=== PATIENT | female | born 1985 | race Caucasian/White ===

== ENCOUNTER 2021-01-29 15:27 | Emergency (ER) | payer SELFPAY ==
[2021-01-29 15:41] VITALS: BP 142/93; PULSE 76; RESP 18; TEMP 37; O2SAT 100
--- NOTE | 2021-01-29 16:20 | ED.GENADULT ---
HPI - General Adult General Chief complaint: Skin/Abscess/Foreign Body Stated complaint: Tick Bite Time Seen by Provider: 01/29/21 16:20 Source: patient and RN notes reviewed Mode of arrival: ambulatory Limitations: no limitations History of Present Illness HPI narrative: 35-year-old female presents with complaints of red, raised, and itching due to tic bites for the past 4 days. Michelle reports being outside in tall grass and finding tics over the next 2-3 days, removed without difficulty. Michelle reports removing tics from LT shoulder, and back of RT knee (redness and swelling). Denies new detergent, personal hygiene products or laundry detergents. No new foods or medications. No burning, bleeding, or drainage. Denies headaches, weakness, fatigue, myalgia, facial swelling, or tongue swelling. Denies dyspnea. Remains active. The patient reports they have not been diagnosed with COVID-19. The patient reports they are not waiting for the results of a COVID-19 lab test. The patient reports they do not have fever or chills. The patient reports they do not have a new or worsening cough. Denies chest pain. The patient reports they do not have any rhinorrhea, congestion, sore throat, nausea, vomiting, abdominal pain, and diarrhea. Tolerating po intake well. Denies recent traveling. Denies concerns for COVID-19 or exposures. At this time, patient is not suspected of having COVID-19. Some parts of this dictation were generated by voice recognition software and may contain typographical and/or grammatical inaccuracies. Related Data Allergies Allergy/AdvReac Type Severity Reaction Status Date / Time Penicillins Allergy Unknown Verified 01/29/21 15:50 Sulfa (Sulfonamide Allergy Unknown Verified 01/29/21 15:50 Antibiotics) Review of Systems Review of Systems: Narrative: CONSTITUTIONAL: Denies fever, chills, sweats. EYES: Denies visual changes, redness, discharge. ENT: Denies rhinorrhea, congestion, sore throat, otalgia. CARDIOVASCULAR: Denies chest pain, palpitations, edema. RESPIRATORY: Denies dyspnea, wheezing, cough. GASTROINTESTINAL: Denies abdominal pain, nausea, vomiting, or diarrhea. SKIN: Denies rash or itching. Complains of red, raised, and itching tic bites to LT shoulder and back of RT knee (redness and swelling). MUSCULOSKELETAL: Denies acute back pain, joint pain, or myalgia. NEUROLOGIC: Denies numbness or focal weakness. PSYCHIATRIC: Denies anxiety or depression. All other systems reviewed & are unremarkable except as noted in HPI and below. FOR[facility]LY [facility] Past Medical History Medical History (Updated 02/07/21 @ 11:47 by JAIDA Moreira) Hypertension Surgical History Surgical History (Updated 02/07/21 @ 11:47 by JAIDA Moreira) History of tonsillectomy Family History Family History (Updated 02/07/21 @ 11:48 by JAIDA Moreira) Father Hypertension Diabetes mellitus Mother Alive and well Social History Social History (Updated 02/07/21 @ 11:50 by JAIDA Moreira) Smoking status: Never smoker Tobacco type: cigarettes Second hand tobacco smoke exposure: No Alcohol intake: current Substance use: never Substance use type: does not use Living arrangements: with family Occupation/Education: occupation Gender identity (if verbalized by the patient): Female Sexual Orientation (if Verbalized by the Patient): Straight or Heterosexual Comments At time of signature, agree with nurse past medical, surgical, social, and family history. There is no relevant family history pertinent to the presenting complaint. Exam Narrative: Exam Narrative: GENERAL: This is a well-nourished, well-developed patient, in no apparent distress. Talks in full sentences and ambulates with steady gait without dyspnea. HEAD: normocephalic, atraumatic. EYES: PERRL. Sclera clear/white. Vision is grossly intact. CARDIOVASCULAR: Regular rate and rhythm without murmurs, gallops,
== END 2021-01-29 16:51 | disposition home or self-care (01) ==
PROVIDERS: Emergency Provider Nurse Practitioner Family
DX: S80.861A Insect bite (nonvenomous), right lower leg, initial encounter (principal); W57.XXXA Bitten or stung by nonvenomous insect and other nonvenomous arthropods, initial encounter
CPT/HCPCS: 99213; G0463

== ENCOUNTER 2022-09-04 09:48 | Inpatient (IN) | payer OTHER, SELFPAY ==
--- NOTE | 2022-08-29 16:20 | PC.NURSE ---
Verified with OR schedule and patient --C/S on 09/04/22 at 1200 Patient instructed nothing to eat or drink after midnight on the night before surgery, needs to be in OB 2 hours before surgery and she needs have pre-op labs drawn the day before surgery-Patient verbalized her understanding
[2022-09-04] VITALS (81 sets, daily range): BP systolic 118–159; BP diastolic 64–141; PULSE 61–94; RESP 14–20; TEMP 36.2–36.7; O2SAT 78–100; BMI 38.0
[2022-09-04 10:38] LABS: Basophils Percent Auto 0.2 % (0.2-1.2); Eosinophils Percent Auto 0.4 % (0-4.4); Hemoglobin 11.5 g/dL (12.0-15.0); Immature Granulocyte Absolute 0.04 K/mm3 (0.00-0.031); Immature Granulocyte Percent A 0.5 % (0-0.5); Lymphocytes Absolute Auto 1.41 K/mm3 (0.9-3.2); Lymphocytes Percent Auto 17.2 % (18.3-44.2); Mean Corpuscular HGB Conc 32.9 g/dl (32-36); Mean Corpuscular Hemoglobin 28.9 pg (26-34); Mean Corpuscular Volume 87.9 fl (80-100); Mean Platelet Volume 10.9 fl (7.4-10.4); Monocytes Absolute Auto 0.7 K/mm3 (0.1-0.6); Monocytes Percent Auto 8.2 % (2.6-8.5); Neutrophils Percent Auto 73.5 % (45.5-73.1); Platelet Count Result 297 k/mm3 (150-375); Red Blood Count 3.98 M/mm3 (4.2-5.4); Red Cell Distribution Width 16.4 % (11.5-14.5); White Blood Count 8.2 K/mm3 (4.5-10.0)
--- NOTE | 2022-09-04 10:50 | LDADM ---
This patient, Michelle Cordova, was admitted to Labor/Delivery/Recovery 119 on 09/04/22 at 09:48 for scheduled section. Plans for surgery/ and pain management were discussed with patient. Patient/family oriented to hospital policies and general routines including ID bracelet, bed and alarms, visiting hours, pain management, procedures, bathroom and other care routines, personal items, smoking policy, room service/diet and guest tray routines, security routines, and visiting hours. Patient/Family are encouraged to report perceived risks to care and to ask questions if they do not understand what they are told or what they should do.
[2022-09-04] MEDS: LACTATED RINGERS 1,000 ML 125 ML IV CONT ×2 (10:51→11:53)
--- NOTE | 2022-09-04 11:40 | WPDANESEPPF ---
Anes - Initial Pre Proc Eval Procedure: Operation Date: 09/04/22 12:00 Proposed Procedures p Primary Section - Alyson Palomo MD Date/Time: 09/04/22 11:40 Surgeon: Alyson Palomo MD Pre Op Diagnosis: C/S Patient Data Age: 37 Gender: F Height: 1.73 m Weight: 113.5 kg Last Vital Signs Temp 36.7 C 09/04/22 11:15 Pulse 88 09/04/22 11:16 Resp 20 09/04/22 11:15 BP 128/90 09/04/22 11:16 Pulse Ox 100 09/04/22 11:15 O2 Del Method Room Air 09/04/22 10:50 Allergies Allergy/AdvReac Type Severity Reaction Status Date / Time Penicillins Allergy Unknown Verified 08/31/22 13:13 Sulfa (Sulfonamide Allergy Unknown Verified 08/31/22 13:13 Antibiotics) Home Medications Medication Instructions Recorded Confirmed Type PNV 153-FA 400 mcg-om3 35 mg-dha 1 tablet PO DAILY 08/27/22 09/04/22 History 25 mg-epa 5 mg-fish oil chew tablet ( Gummies) lansoprazole 15 mg capsule,delayed 15 mg PO BID 08/27/22 09/04/22 History release Laboratory Tests 09/04/22 09/04/22 09/04/22 10:31 10:31 10:31 WBC 8.2 K/mm3 K/mm3 (4.5-10.0) RBC 3.98 M/mm3 L M/mm3 (4.2-5.4) Hgb 11.5 g/dL L g/dL (12.0-15.0) Hct 35.0 % L % (37.0-47.0) MCV 87.9 fl fl (80-100) MCH 28.9 pg pg (26-34) MCHC 32.9 g/dl g/dl (32-36) RDW 16.4 % H % (11.5-14.5) Plt Count 297 k/mm3 k/mm3 (150-375) MPV 10.9 fl H fl (7.4-10.4) Immature Gran % (Auto) 0.5 % % (0-0.5) Neut % (Auto) 73.5 % H % (45.5-73.1) Lymph % (Auto) 17.2 % L % (18.3-44.2) [place] % (Auto) 8.2 % % (2.6-8.5) Eos % (Auto) 0.4 % % (0-4.4) Baso % (Auto) 0.2 % % (0.2-1.2) Lymph # (Auto) 1.41 K/mm3 K/mm3 (0.9-3.2) [place] # (Auto) 0.7 K/mm3 H K/mm3 (0.1-0.6) Eos # (Auto) 0.0 K/mm3 K/mm3 (0-0.3) Baso # (Auto) 0.0 K/mm3 K/mm3 (0.0-0.1) Abs Immat Gran (auto) 0.04 K/mm3 H K/mm3 (0.00-0.031) Absolute Neuts (auto) 6.0 K/mm3 K/mm3 (1.3-6.7) Absolute Nucleated RBC 0.0 K/mm3 K/mm3 (0.0-0.012) Nucleated RBC % 0.0 % % (0.0-0.2) RPR Pending Blood Type A Positive Antibody Screen Pending Patient hx anesthesia problems: none Family hx anesthesia problems: none Results Review: All pre-operative results and documents have been reviewed as part of the pre-operative evaluation. [facility] Past Medical History Medical History Hypertension Surgical History Surgical History History of tonsillectomy Family History Family History Father Diabetes mellitus Hypertension Restrictive airway disease Mother Alive and well Hypothyroid Grandparent Diabetes mellitus Hypertension Grandparent Colon cancer Grandparent Afib Hypertension Grandparent Prostate carcinoma Social History Social History Smoking status: Never smoker Tobacco type: cigarettes Second hand tobacco smoke exposure: No Alcohol intake: current Substance use: never Substance use type: does not use Lack of Transportation: No Lack of Food: Never True Current Housing: I Have Housing Concerned About Future Housing: No Difficulty Paying Gas/Electric Bills: No Difficulty Paying for Meds: No Currently Unemployed: No Education: Trade/Vocational Certificate Difficulty w/ Childcare or Family Care: No Gender identity (if verbalized by the patient): Female Sexual Orientation (if Verbalized by the Patient): Straight or Heterosexual Spiritual care concerns: No Anes - Eval Final PreProcedure Day of Procedure 09/04/22 11:4
[2022-09-04] MEDS: ceFAZolin 2 GM/D5W 50 ML 2 GM/50 ML BAG IVPB (12:03)
--- NOTE | 2022-09-04 12:03 | PM.IMHP ---
H&P: HPI History of Present Illness Date/Time: 09/04/22 12:03 Chief Complaint: CS Narrative: Michelle is a 37yo G1 at 38.0 for primary CS for CHTN and macrosomia, >99% at 36w. also complicated by AMA, anxiety and depression without meds, and leiomyoma. Review of Systems Review of Systems: All systems reviewed & are unremarkable except as noted in HPI and below PMFSH Past Medical History Medical History Hypertension Surgical History Surgical History History of tonsillectomy Family History Family History Father Diabetes mellitus Hypertension Restrictive airway disease Mother Alive and well Hypothyroid Grandparent Diabetes mellitus Hypertension Grandparent Colon cancer Grandparent Afib Hypertension Grandparent Prostate carcinoma Social History Social History Smoking status: Never smoker Tobacco type: cigarettes Second hand tobacco smoke exposure: No Alcohol intake: current Substance use: never Substance use type: does not use Lack of Transportation: No Lack of Food: Never True Current Housing: I Have Housing Concerned About Future Housing: No Difficulty Paying Gas/Electric Bills: No Difficulty Paying for Meds: No Currently Unemployed: No Education: Trade/Vocational Certificate Difficulty w/ Childcare or Family Care: No Gender identity (if verbalized by the patient): Female Sexual Orientation (if Verbalized by the Patient): Straight or Heterosexual Spiritual care concerns: No Meds Home Medications and Allergies Home Medications Medication Instructions Recorded Confirmed Type PNV 153-FA 400 mcg-om3 35 mg-dha 1 tablet PO DAILY 08/27/22 09/04/22 History 25 mg-epa 5 mg-fish oil chew tablet ( Gummies) lansoprazole 15 mg capsule,delayed 15 mg PO BID 08/27/22 09/04/22 History release Allergies Allergy/AdvReac Type Severity Reaction Status Date / Time Penicillins Allergy Unknown Verified 08/31/22 13:13 Sulfa (Sulfonamide Allergy Unknown Verified 08/31/22 13:13 Antibiotics) Vital Signs Vital Signs - 24 hr 09/04/22 10:34 09/04/22 10:46 09/04/22 10:59 Temperature Pulse Rate 91 94 Respiratory Rate Blood Pressure 143/88 H 137/90 Pulse Oximetry 99 Oxygen Delivery 09/04/22 11:01 09/04/22 11:04 09/04/22 11:09 Temperature Pulse Rate 87 Respiratory Rate Blood Pressure 124/86 Pulse Oximetry 100 99 Oxygen Delivery 09/04/22 11:16 09/04/22 10:50 09/04/22 11:15 Temperature 98.0 F Pulse Rate 88 88 Respiratory Rate 20 Blood Pressure 128/90 128/90 Pulse Oximetry 100 Oxygen Delivery Room Air Exam Const: General: no acute distress Resp: Effort & Inspection: normal respiratory effort Auscultation: clear to auscultation bilaterally Cardio: Rate: regular rate Rhythm: regular rhythm GI: GI Palp: Yes Soft to palpation Extrem: General: normal to inspection H&P: Results Labs Labs: Short CBC 09/04/22 Range/Units 10:31 WBC 8.2 (4.5-10.0) K/mm3 Hgb 11.5 L (12.0-15.0) g/dL Hct 35.0 L (37.0-47.0) % Plt Count 297 (150-375) k/mm3 Assessment and Plan Assessment and plan (1) Chronic hypertension affecting : Code(s): O10.919 - Unspecified pre-existing hypertension complicating , unspecified trimester Status: Acute (2) LGA (large for gestational age) fetus: Status: Acute Plan Discussed RBA of primary CS vs attempted with LGA baby. Pt has chosen primary CS. QUestions answered, consented. Will proceed. BPS mildly elevated- stable.
--- NOTE | 2022-09-04 12:06 | WPDHPUPDATE1 ---
History and Physical Update Update Date/Time: 09/04/22 12:06 History and Physical has been reviewed, including an updated exam of the patient. There are NO changes in the patient's condition. Risks, benefits, and alternatives have been discussed and questions answered. Patient agrees to proceed with procedure.
--- NOTE | 2022-09-04 13:07 | PM.OBPRVD ---
OB - Delivery Note Procedure Delivery date: 09/04/22 Procedure: Procedures Operation Date: 09/04/22 12:00 Actual Procedure Side Surgeon p Primary Section Alyson Palomo MD Events: Chronic Hypertension and Macrosomia Route of delivery: Specimen: Yes (placenta) Quantitative Blood Loss (ml): 385 Anesthesia type: Spinal Disposition: Floor Complications: none Narrative: The patient was taken to the OR and had her epidural anesthesia dosed adequately. She was placed in dorsal supine position with left lateral tilt. SCDs and yuan had been placed. She was prepped and draped in the normal sterile fashion. A Pfannensteil skin incision was made and carried through to the underlying layer of fascia. The fascia was incised in the midline and then extended laterally using Lazaro scissors. The muscles were in the midline and the peritoneum was entered bluntly. The peritoneal incision was extended inferiorly and superiorly with care to avoid the bladder. The bladder blade was then inserted, the vesicouterine peritoneum was grasped, incised with Metzenbaum scissors, and a bladder flap created. The bladder blade was reinserted. A low transverse uterine incision was made with a scalpel and extended bluntly. AROM was performed and fluid was noted to be clear. The head was delivered, followed by the remainder of the baby. The baby's oropharynx was suctioned. After 30 seconds, the cord was clamped and cut and the infant was handed off. Cord blood was obtained and the placenta was then removed manually. The uterus was exteriorized. A moist lap sponge was used to curette the endometrium. The uterine incision was then closed with one layer of 0-Vicryl in a running, locking fashion. Good hemostasis was noted. The posterior cul de sac was irrigated with normal saline and cleared of all clot and debris. The uterus was returned to the abdomen. Both lateral gutters were then irrigated. The rectus muscles were inspected and found to be hemostatic. The fascia was reapproximated using 0-Vicryl in running fashion. The subcutaneous tissue was irrigated with normal saline and made hemostatic with Bovie electrocautery. The subcutaneous tissue was reapproximated with a layer of running 2-0 plain gut. The skin was then closed with absorbable neeru. Steri strips and a bandage were applied. The uterus was evacuated. The patient tolerated the procedure very well. All counts were correct. She was taken to the recovery room in good condition. Baby Date of : 09/04/22 Time of : 12:34 Weeks of gestation at delivery: 38 gender: Male Weight (pounds): 8 Weight (ounces): 6 presentation: vertex Placenta delivery description: Manual Removal Cord Vessel Description: 3 Vessels and Delayed Cord Clamping score one minute: 7 score five minutes: 8
--- NOTE | 2022-09-04 13:10 | SUR.OPER ---
Pt has 1000 ml of LR with 20 units of Pitocin infusing well- anesthesia left 1000 ml to count.
[2022-09-04 14:46] LABS: Rapid Plasma Reagin Non-Reactive (NonReactive)
--- NOTE | 2022-09-04 14:56 | SUR.PHASEI ---
Dr. Palomo updated on BP's. Provider consultative sales associate to be notified if she has any severe BP's.
[2022-09-04] MEDS: DOCUSATE SODIUM 100 MG CAPSULE PO (16:25)
[2022-09-04] MEDS: OXYTOCIN 30 UNITS/NS 500 ML 30 UNITS/500 ML BAG 125 UNITS IV CONT (17:30)
[2022-09-04] MEDS: IBUPROFEN 600 MG TABLET PO (20:44)
[2022-09-04] MEDS: HYDROcodone/acetaminophen (*CRX) 5-325 MG TABLET 1 TAB PO (23:36)
[2022-09-05] MEDS: IBUPROFEN 600 MG TABLET PO ×3 (04:52→20:56)
[2022-09-05] MEDS: HYDROcodone/acetaminophen (*CRX) 5-325 MG TABLET 1 TAB PO ×3 (04:54→12:27)
[2022-09-05 04:58] VITALS: BP 143/94; PULSE 70; RESP 16; TEMP 36.6; O2SAT 98
[2022-09-05 06:32] LABS: Basophils Percent Auto 0.2 % (0.2-1.2); Eosinophils Percent Auto 0.2 % (0-4.4); Hematocrit 31.1 % (37.0-47.0); Hemoglobin 10.2 g/dL (12.0-15.0); Immature Granulocyte Absolute 0.06 K/mm3 (0.00-0.031); Immature Granulocyte Percent A 0.5 % (0-0.5); Lymphocytes Absolute Auto 1.17 K/mm3 (0.9-3.2); Lymphocytes Percent Auto 9.7 % (18.3-44.2); Mean Corpuscular HGB Conc 32.8 g/dl (32-36); Mean Corpuscular Hemoglobin 28.7 pg (26-34); Mean Corpuscular Volume 87.4 fl (80-100); Mean Platelet Volume 11.1 fl (7.4-10.4); Monocytes Percent Auto 8.6 % (2.6-8.5); Neutrophils Absolute Auto 9.7 K/mm3 (1.3-6.7); Neutrophils Percent Auto 80.8 % (45.5-73.1); Platelet Count Result 203 k/mm3 (150-375); Red Blood Count 3.56 M/mm3 (4.2-5.4); Red Cell Distribution Width 16.4 % (11.5-14.5)
--- NOTE | 2022-09-05 07:46 | WPDANLDPN2 ---
Anes-Prog Note L&D Date/Time: 09/05/22 07:46 Comfortable throughout: section Neuraxial method: spinal Epidural/Spinal procedure site: clean & non-tender Neuro status: Neuro function grossly intact. Cardiovascular status: normal Respiratory status: normal Airway patency: baseline Mental status: baseline Post-Op hydration status: normal Vital Signs: Last Vital Signs Temp 36.6 C 09/04/22 16:24 Pulse 77 09/04/22 16:24 Resp 18 09/04/22 16:24 BP 144/83 H 09/04/22 16:24 Pulse Ox 100 09/04/22 16:24 O2 Del Method Room Air 09/04/22 16:24 Pain score (VAS): 3/10 I/O: Intake & Output 09/04/22 09/04/22 09/05/22 15:59 23:59 07:59 Intake Total 1150 Output Total 938 200 Balance 212 -200 Post-procedural complaints: none Patient feedback: Patient satisfied with anesthetic care.
--- NOTE | 2022-09-05 07:46 | WPDANLDNPN2 ---
Anes-Prog Note L&D-Neuraxial Date/Time: 09/05/22 07:46 Neuraxial medications: intrathecal PF morphine Opiod-related complaints: pruritis mild, no treatment Patient feedback: Patient satisfied with post-operative pain management.
--- NOTE | 2022-09-05 08:34 | PM.OBPNVD ---
OB - PN: Subj Subjective Date/time seen: 09/05/22 08:34 s/p section day 1, LGA OB - PN: Obj Data Labs 09/05/22 06:07 Labs: Laboratory Results - last 24 hr 09/04/22 09/04/22 09/04/22 10:31 10:31 10:31 WBC 8.2 RBC 3.98 L Hgb 11.5 L Hct 35.0 L MCV 87.9 MCH 28.9 MCHC 32.9 RDW 16.4 H Plt Count 297 MPV 10.9 H Immature Gran % (Auto) 0.5 Neut % (Auto) 73.5 H Lymph % (Auto) 17.2 L [place] % (Auto) 8.2 Eos % (Auto) 0.4 Baso % (Auto) 0.2 Lymph # (Auto) 1.41 [place] # (Auto) 0.7 H Eos # (Auto) 0.0 Baso # (Auto) 0.0 Abs Immat Gran (auto) 0.04 H Absolute Neuts (auto) 6.0 Absolute Nucleated RBC 0.0 Nucleated RBC % 0.0 RPR Non-reactive Blood Type A Positive Antibody Screen Negative 09/05/22 06:07 WBC 12.0 H RBC 3.56 L Hgb 10.2 L Hct 31.1 L MCV 87.4 MCH 28.7 MCHC 32.8 RDW 16.4 H Plt Count 203 MPV 11.1 H Immature Gran % (Auto) 0.5 Neut % (Auto) 80.8 H Lymph % (Auto) 9.7 L [place] % (Auto) 8.6 H Eos % (Auto) 0.2 Baso % (Auto) 0.2 Lymph # (Auto) 1.17 [place] # (Auto) 1.0 H Eos # (Auto) 0.0 Baso # (Auto) 0.0 Abs Immat Gran (auto) 0.06 H Absolute Neuts (auto) 9.7 H Absolute Nucleated RBC 0.0 Nucleated RBC % 0.0 RPR Blood Type Antibody Screen OB - PN A/P Plan day: 1 Time Spent With Patient Time: Total time spent is greater than 50% in coordination of care (as documented) at patient's floor/unit and/or counseling patient: Review of Systems Review of Systems: All systems reviewed & are unremarkable except as noted in HPI and below Exam Narrative: incision CDI Const: General: cooperative and healthy appearing Chest: Chest palpation & inspection: normal inspection of the chest Resp: Effort & Inspection: normal respiratory effort Skin: General skin exam: normal color Neuro: General: patient oriented x3
[2022-09-05] MEDS: MULTIVIT/MIN/PREN/FOL AC/IRON TABLET 1 TAB PO (09:02)
[2022-09-05] MEDS: DOCUSATE SODIUM 100 MG CAPSULE PO ×2 (09:02→15:49)
[2022-09-05 09:20] VITALS: BP 142/78; PULSE 79; RESP 18; TEMP 36.8; O2SAT 99
[2022-09-05 13:00] VITALS: BP 146/95; PULSE 82; RESP 16; TEMP 36.6; O2SAT 100
[2022-09-05] MEDS: HYDROcodone/acetaminophen (*CRX) 10-325 MG TABLET 1 TAB PO ×2 (15:48→20:57)
[2022-09-05 17:00] VITALS: BP 163/90; PULSE 87; RESP 16; TEMP 37.2; O2SAT 100
[2022-09-05 20:15] VITALS: BP 140/96; PULSE 94; RESP 20; TEMP 37.3; O2SAT 99
[2022-09-06] MEDS: HYDROcodone/acetaminophen (*CRX) 5-325 MG TABLET 1 TAB PO ×5 (00:17→22:17)
[2022-09-06 00:30] VITALS: BP 140/94; PULSE 82; RESP 18; TEMP 36.9; O2SAT 99
[2022-09-06 03:54] VITALS: BP 150/90; PULSE 86; RESP 16; TEMP 36.4; O2SAT 100
[2022-09-06] MEDS: IBUPROFEN 600 MG TABLET PO ×3 (03:55→19:07)
[2022-09-06 06:56] VITALS: BP 131/81; PULSE 88; RESP 18; TEMP 36.7; O2SAT 99
--- NOTE | 2022-09-06 06:57 | PM.OBPNVD ---
OB - PN: Subj Subjective Date/time seen: 09/06/22 06:57 s/p section day 2, pain better controlled this am OB - PN: Obj Data Labs 09/05/22 06:07 OB - PN A/P Plan day: 2 Time Spent With Patient Time: Total time spent is greater than 50% in coordination of care (as documented) at patient's floor/unit and/or counseling patient: Review of Systems Review of Systems: All systems reviewed & are unremarkable except as noted in HPI and below Exam Const: General: cooperative, healthy appearing and comfortable
[2022-09-06] MEDS: DOCUSATE SODIUM 100 MG CAPSULE PO ×2 (09:11→17:34)
[2022-09-06] MEDS: MULTIVIT/MIN/PREN/FOL AC/IRON TABLET 1 TAB PO (09:11)
[2022-09-06] MEDS: HYDROcodone/acetaminophen (*CRX) 10-325 MG TABLET 1 TAB PO ×2 (12:17→15:21)
[2022-09-06 19:10] VITALS: BP 155/93; PULSE 97; RESP 20; TEMP 36.7
[2022-09-07] MEDS: IBUPROFEN 600 MG TABLET PO ×2 (02:14→11:57)
[2022-09-07] MEDS: HYDROcodone/acetaminophen (*CRX) 5-325 MG TABLET 1 TAB PO ×4 (02:18→15:10)
--- NOTE | 2022-09-07 05:39 | PC.NURSE ---
Patient viewed the discharge video Mother & Baby Care, The First Two Weeks . Patient was given the opportunity and encouraged to ask questions. Patient verbalized understanding of information shared and has been given the mother/baby guide for home reference.
[2022-09-07] MEDS: SIMETHICONE 80 MG TAB.CHEW PO (06:30)
--- NOTE | 2022-09-07 09:33 | PM.OBPNVD ---
OB - PN: Subj Subjective Date/time seen: 09/07/22 09:33 Patient comments: no complaints, pain well controlled, incisional pain, tolerating diet and flatus present OB - PN: Obj Data Labs 09/05/22 06:07 OB - PN A/P Plan day: 3 Plan: routine care, discharge home and other Comments: Incision check in one week. Given precautions Time Spent With Patient Time: Total time spent is greater than 50% in coordination of care (as documented) at patient's floor/unit and/or counseling patient: Exam Const: General: comfortable, no acute distress and alert Resp: Effort & Inspection: normal respiratory effort Auscultation: no crackles, no rales and no rhonchi Cardio: Rate: regular rate Heart sounds: no click, no murmurs and no rubs GI: Inspection: non-distended GI Palp: No Tenderness to palpation present (GI) Auscultation: normal bowel sounds Other: Incision - CDI Extrem: General: normal to inspection, no pedal edema and no calf tenderness
--- NOTE | 2022-09-07 09:34 | PM.OBDSVD ---
DS: Admitting Diagnosis Discharge Date 09/07/22 Admitting Diagnosis term OB - DS: Summary OB Procedures : None OB Procedures Intrapartum: OB Procedures: : None Peripartum Data Procedures: Procedures Operation Date: 09/04/22 12:00 Actual Procedure Side Surgeon p Primary Section Alyson Palomo MD Time Spent with Patient Time attestation: Total time spent providing and/or coordinating discharge services: Discharge Plan Discharge Discharging Clinician: Rufino Mccabe Patient Disposition: Home, Self-Care Activity: pelvic rest Diet: regular Patient Instructions: Antibiotic Form Stand Alone Forms: General Discharge Information Follow-up/Referrals: Rufino Mccabe MD [Physician] - Discharge Medications: New hydrocodone-acetaminophen 5-325 mg tablet 1 tablet PO Q4H PRN (Reason: pain) Qty: 25 0RF Continued lansoprazole [Prevacid] 15 mg Capsule,Delayed Release(Dr/Ec) 15 mg PO BID Gummies 400 mcg-35 mg- 25 mg-5 mg Tablet,Chewable 1 tablet PO DAILY Date of admission: 09/04/22 09:48 Primary Care Provider: UNKNOWN,DOCTOR Admitting Provider: Alyson Palomo Attending physician on admission: Alyson Palomo Condition: Stable
[2022-09-07 10:00] VITALS: PULSE 97; RESP 20; O2SAT 99
[2022-09-07] MEDS: MULTIVIT/MIN/PREN/FOL AC/IRON TABLET 1 TAB PO (10:00)
[2022-09-07] MEDS: DOCUSATE SODIUM 100 MG CAPSULE PO (10:00)
[2022-09-07 11:00] VITALS: BP 152/89; PULSE 86; RESP 20; TEMP 37; O2SAT 100
--- NOTE | 2022-09-07 13:39 | PC.NURSE ---
1330 Mother appears anxious and needs a steady supply of emotional support and encouragement. Her significant other is not here at the moment. He has gone to [facility] for treatment for an anxiety attach. Pt was frantic that he had forgotten his phone in her room. She spoke with her father by phone and has made arrangements to go to her mother and father's house at discharge. She expressed to her father, He will have to be on some anti depressants if we are going to be together. After speaking to her father her anxiety lowered and she appears much more at ease. Her mother is coming to be with her during the discharge procedure. This arrangement seems to be a good support system for her. Pamphlet given for resources for support after discharge.
[2022-09-09 11:47] VITALS: BP 137/85; PULSE 72; RESP 20; TEMP 36.8; O2SAT 100
== END 2022-09-07 16:00 | disposition home or self-care (01) | DRG 540 ==
LOC: ANHOB2 09-07 13:59 → ANHLDR 09-08 14:00 → ANHOB2 09-08 14:00
PROVIDERS: Admitting Provider Obstetrics & Gynecology; Visit Provider Obstetrics & Gynecology
PROC: (CPT 59514; principal; 2022-09-04 12:00)
DX: O10.92 Unspecified pre-existing hypertension complicating childbirth (principal); N80.00 Endometriosis of the uterus, unspecified; Z37.0 Single live birth; Z3A.38 38 weeks gestation of pregnancy; O36.63X0 Maternal care for excessive fetal growth, third trimester, not applicable or unspecified; O99.892 Other specified diseases and conditions complicating childbirth; N80.103 Endometriosis of bilateral ovaries, unspecified depth
CPT/HCPCS: 36415; 85025; 86592; 86850; 86900; 86901; 96365; 96375; A9270; J0131; J0690; J1200; J1756; J2274; J2590; J7120

== ENCOUNTER 2022-10-06 06:07 | Emergency (ER) | payer OTHER, SELFPAY ==
--- NOTE | 2022-10-06 06:13 | ED.GENADULT ---
HPI - General Adult General Chief complaint: Anxiety Stated complaint: hypertension Time Seen by Provider: 10/06/22 06:13 History of Present Illness HPI narrative: the patient is a 37-year-old woman who recently underwent a on 09/04/2022 due to chronic hypertension of , macrosomia, advanced maternal age, with also complicated by anxiety and depression. Since delivery, the patient has been placed on nifedipine 30 mg at bedtime. She has been having an argument with her baby's father, and she broke up with him last night. She has been feeling anxious and very stressed. She has had insomnia for the last 2 days. She feels depressed. Not suicidal. Not homicidal. At 4:30 a.m. this morning she checked her blood pressure: 164/112. She is still feeling very anxious, tearful, agitated. no chest pain or abdominal pain. No nausea or vomiting. She is . incision healing. No headache. Related Data Home Medications Medication Instructions Recorded Confirmed nifedipine 30 mg tablet,extended 30 mg PO BID 10/14/22 10/14/22 release 24 hr Allergies Allergy/AdvReac Type Severity Reaction Status Date / Time Penicillins Allergy Unknown Verified 10/14/22 16:14 Sulfa (Sulfonamide Allergy Unknown Verified 10/14/22 16:14 Antibiotics) Review of Systems Review of Systems: All systems reviewed & are unremarkable except as noted in HPI and below Constitutional: Constitutional: Reports no additional constitutional complaints, Denies anorexia, Denies body ache(s), Denies chills, Denies excessive sweating, Denies fatigue, Denies fever(s), Denies frequent falls, Denies headache(s), Reports malaise and Denies poor appetite Eyes: Eyes: Reports no additional eye complaints, Denies blurry vision, Denies change in vision, Denies irritation, Denies itchy eyes and Denies photophobia ENT: Reports system reviewed and no additional complaints, except as documented, Reports Normal hearing present, Denies change in voice, Denies dysphagia, Denies vertigo, Denies dizziness, Denies ear discharge, Denies headache(s), Denies hearing loss, Denies hoarseness, Denies nasal congestion, Denies neck pain, Denies sinus pressure, Denies sore throat and Denies throat swelling Cardiovascular: Cardiovascular: Reports no additional cardiovascular complaints, Denies chest pain, Denies syncope, Denies rapid heart rate, Denies irregular heart rhythm, Denies leg edema, Denies dyspnea and Denies slow heart rate Respiratory: Respiratory: Reports no additional respiratory complaints, Denies cough, Denies dyspnea, Denies stridor and Denies wheezing Gastrointestinal: Gastrointestinal: Reports no additional gastrointestinal complaints, Denies abdominal pain, Denies melena, Denies hematochezia, Denies dysphagia, Denies diarrhea, Denies nausea and Denies vomiting Genitourinary: Genitourinary: Denies hematuria, Denies urinary frequency, Denies dysuria, Denies flank pain and Denies urinary urgency Musculoskeletal: Musculoskeletal: Reports no additional musculoskeletal complaints, Denies abnormal gait, Denies back pain, Denies myalgias, Denies arthralgias, Denies joint swelling, Denies limited range of motion, Denies muscle cramps, Denies muscle weakness, Denies neck pain and Denies numbness Integumentary/Breasts: Skin/Breast: Reports system reviewed and no additional complaints, except as docu, Denies breast pain, Denies change in pigmentation, Denies pruritus, Denies erythema and Denies wounds Neurologic: Reports system reviewed and no additional complaints, except as documented, Reports Normal hearing present, Denies Abnormal speech present, Denies abnormal gait, Denies confusion, Denies vertigo, Denies dizziness, Denies syncope, Denies frequent falls, Denies headache(s), Denies focal weakness, Denies numbness and Denies paresthesias Psychiatric: Psychiatric: Reports no additional psychiatric complaints, Reports anxiety, Denies confusion,
--- NOTE | 2022-10-06 06:21 | ECG_ITS ---
Measurements Intervals [place] Rate: 91 P: 78 OK: 136 QRS: 81 QRSD: 89 T: 51 QT: 325 QTc: 400 Interpretive Statements SINUS RHYTHM POSSIBLE RIGHT ATRIAL ENLARGEMENT BORDERLINE ECG NO PREVIOUS ECG AVAILABLE FOR COMPARISON Electronically Signed On 10-06-2022 7:54:55 HTML DEVELOPER by Cristino Mendenahll D.O.
[2022-10-06 06:40] LABS: Basophils Absolute Auto 0.03 K/mm3 (0.00-0.10); Basophils Percent Auto 0.3 % (0.0-1.0); Eosinophils Absolute Auto 0.03 K/mm3 (0.02-0.50); Eosinophils Percent Auto 0.3 % (1.0-6.0); Hematocrit 40.5 % (35.0-49.0); Hemoglobin 13.4 g/dL (12.0-15.0); Immature Granulocyte Absolute 0.04 K/mm3 (0.00-0.00); Immature Granulocyte Percent A 0.4 % (0.0-0.0); Lymphocytes Absolute Auto 1.17 K/mm3 (1.10-4.50); Lymphocytes Percent Auto 12.5 % (18.0-42.0); Mean Corpuscular HGB Conc 33.1 g/dL (32.0-36.0); Mean Corpuscular Hemoglobin 29.2 pg (27.0-31.0); Mean Corpuscular Volume 88.2 fL (78.0-102.0); Mean Platelet Volume 9.8 fl (9.2-11.8); Monocytes Absolute Auto 0.55 K/mm3 (0.10-0.90); Monocytes Percent Auto 5.9 % (2.0-11.0); Neutrophils Absolute Auto 7.6 K/mm3 (1.7-7.2); Neutrophils Percent Auto 80.6 % (50.0-70.0); Platelet Count Result 319 K/mm3 (150-420); Red Blood Count 4.59 M/mm3 (4.20-5.40); Red Cell Distribution Width 14.4 % (11.6-14.4); White Blood Count 9.4 K/mm3 (4.8-10.8)
[2022-10-06 06:41] LABS: Add Urine Microscopic? YES; Appearance Urine Clear (Clear); Bilirubin Urine Negative (Negative); Blood Urine Trace-Intact (Negative); Color Urine Light Yellow (Yellow); Glucose Urine UA Negative (Negative); Ketones Urine Negative (Negative); Leukocyte Esterase Ur Negative LEU/UL (Negative); Nitrate Urine Negative (Negative); Protein Urine Negative (Negative); Urobilinogen Urine 0.2 mg/dL (0.2-1.0)
[2022-10-06 06:46] LABS: Bacteria Urine Trace /hpf; RBC Urine None seen /hpf (0-2); Squamous Epithelial Cell Urine Few /hpf (Few); WBC Urine None seen /hpf (0-3)
[2022-10-06 06:49] LABS: Amphetamine Screen Urine Negative (Negative); Barbiturate Screen Urine Negative (Negative); Benzodiazepines Screen Urine Negative (Negative); Cannabinoid Screen Urine Negative (Negative); Cocaine Screen Urine Negative (Negative); Methadone Screen Urine Negative (Negative); Opiate Screen Urine Negative (Negative); Phencyclidine Screen Urine Negative (Negative)
[2022-10-06 06:50] VITALS: BP 149/108; PULSE 106; TEMP 36.3; O2SAT 99
[2022-10-06] MEDS: LABETALOL HCL INJ 100 MG/20 ML VIAL 20 MG IV PUSH (06:52)
[2022-10-06] MEDS: diphenhydrAMINE HCl INJ 50 MG/ML VIAL IV PUSH (06:52)
[2022-10-06 06:58] LABS: Ethanol < 3 mg/dL (0-6)
[2022-10-06 06:59] LABS: Acetaminophen < 2 ug/mL (10-30); Salicylate 0.7 mg/dL (2.8-20.0)
[2022-10-06 07:07] LABS: Alanine Aminotransferase 16 U/L (14-59); Albumin Level 3.7 g/dL (3.4-5.0); Alkaline Phosphatase 124 U/L (46-116); Anion Gap 7 mmol/L (8-16); Aspartate Amino Transferase 15 U/L (15-37); Bilirubin,Total 0.2 mg/dL (0.00-1.00); Blood Urea Nitrogen 13 mg/dL (7-18); Calcium 9.1 mg/dL (8.5-10.1); Carbon Dioxide 31 mmol/L (21-32); Chloride 103 mmol/L (98-108); Estimated CRCL calculation 100 ml/min; Estimated Glomerular Filt Rate > 60; Glucose 117 mg/dL (70-99); Osmolality Calculated 293 mOsm/kg (285-295); Potassium 4.1 mmol/L (3.5-5.1); Sodium 141 mmol/L (136-145); Total Protein 7.7 g/dL (6.4-8.2)
[2022-10-06 07:08] LABS: Magnesium 2.2 mg/dL (1.8-2.4); NT Pro B Type Natriuretic Pept 25 pg/mL (0-125); Troponin I 8.7 ng/L (0.00-60.4)
[2022-10-06 07:08] LABS: Thyroid Stimulating Hormone Reflex 1.63 u/IU/mL (0.36-3.74)
[2022-10-06 07:23] VITALS: BP 130/84; PULSE 70; RESP 20; O2SAT 98
--- NOTE | 2022-10-06 07:25 | PC.NURSE ---
Pt resting comfortably at this time. VSS at this time. Report given to NIKKI Teague
--- NOTE | 2022-10-06 07:44 | ED.GENADULT ---
HPI - General Adult General Chief complaint: Anxiety Stated complaint: hypertension Time Seen by Provider: 10/06/22 06:13 History of Present Illness HPI narrative: Care assumed from Dr. Cruz at 0700. Please see his note for further details. She expressed anxiety and depression to me. She is very upset as her partner just left and she was worried about her elevated BP. (She has a diagnosis of elevated BP before ). She denies visual and auditory hallucinations, SI and HI. She stated that she will never hurt her baby. Her father is with her and states he is a great support system. She has never been to counseling or been on meds for her anxiety depression. She denies chest pain, dyspnea and cardiac symptoms. Related Data Home Medications Medication Instructions Recorded Confirmed PNV 153-FA 400 mcg-om3 35 mg-dha 1 tablet PO DAILY 08/27/22 10/06/22 25 mg-epa 5 mg-fish oil chew tablet ( Gummies) lansoprazole 15 mg capsule,delayed 15 mg PO BID 08/27/22 10/06/22 release Allergies Allergy/AdvReac Type Severity Reaction Status Date / Time Penicillins Allergy Unknown Verified 08/31/22 13:13 Sulfa (Sulfonamide Allergy Unknown Verified 08/31/22 13:13 Antibiotics) [facility] Past Medical History Medical History Hypertension Surgical History Surgical History History of tonsillectomy Family History Family History Father Diabetes mellitus Hypertension Restrictive airway disease Mother Alive and well Hypothyroid Grandparent Diabetes mellitus Hypertension Grandparent Colon cancer Grandparent Afib Hypertension Grandparent Prostate carcinoma Social History Social History Smoking status: Never smoker Tobacco type: cigarettes Second hand tobacco smoke exposure: No Alcohol intake: current Substance use: never Substance use type: does not use Lack of Transportation: No Lack of Food: Never True Current Housing: I Have Housing Concerned About Future Housing: No Difficulty Paying Gas/Electric Bills: No Difficulty Paying for Meds: No Currently Unemployed: No Education: Trade/Vocational Certificate Difficulty w/ Childcare or Family Care: No Living arrangements: with family Occupation/Education: occupation Gender identity (if verbalized by the patient): Female Sexual Orientation (if Verbalized by the Patient): Straight or Heterosexual Spiritual care concerns: No Exam Const: General: healthy appearing and no acute distress Nutritional Appearance: well nourished HENMT: Head: normal to inspection Ears: external ears normal Face/Nose/Sinus: Normal external nose present Eyes: Conjunctivae: conjunctivae normal Pupils: Equal, round and reactive pupils present Neck: Neck: normal visual inspection Chest: Chest palpation & inspection: normal inspection of the chest Resp: Effort & Inspection: normal respiratory effort Cardio: Rate: regular rate Skin: General skin exam: normal color Rashes: no rashes Neuro: General: patient oriented x3 and moves all extremities Extrem: General: normal to inspection Psych: Mental Status: mental status grossly normal Affect: Sad affect present and Anxious affect present Other: was lying in bed crying hysterically Course Course Emergency Course: Evaluated patient. We discussed anxiety, depression and warning signs to return. I suspect her BP was elevated d/t chronic hypertension and stress as she has no other signs or labs consistent with late eclampsia. She was given resources for therapy and has the contact information for a primary care doctor. Vital Signs Vital signs: Vital Signs Temperature 97.4 F L 10/06/22 06:50 Pulse Rate 106 H 10/06/22 06:50 Blood
[2022-10-06 08:05] VITALS: BP 142/89; PULSE 74; RESP 16; TEMP 36.8; O2SAT 99
== END 2022-10-06 08:05 | disposition home or self-care (01) ==
PROVIDERS: Emergency Medicine; Emergency Provider Family Medicine
DX: I10 Essential (primary) hypertension (principal); F32.A Depression, unspecified; F41.9 Anxiety disorder, unspecified
CPT/HCPCS: 36415; 80053; 80307; 81001; 83735; 83880; 84443; 84484; 85025; 93005; 96374; 96375; 99284; J1200

== ENCOUNTER 2022-10-11 15:24 | Emergency (ER) | payer OTHER, SELFPAY ==
[2022-10-11 15:30] VITALS: BP 176/99; PULSE 122; RESP 20; TEMP 36.6; O2SAT 97
--- NOTE | 2022-10-11 15:54 | ED.GENADULT ---
HPI - General Adult General Chief complaint: Anxiety Stated complaint: panic attack Time Seen by Provider: 10/11/22 15:28 History of Present Illness HPI narrative: Michelle is a 37F with a PMH of anxiety/panic, hypertension and a recent delivery that presented to the ED with her father after a panic attack. I saw her in the ED for another panic attack 5 days ago. The father of her child had told her that he no longer wants to be with her and be a family. She reportedly was beside herself and uncontrollable so her father had to put her in a bear hug and brought her here. No reports of SI or HI were reported. She did not start taking the sertraline she was given at last visit. She does have an appointment with [facility] coming up. In the ED she denies any physical symptoms including CP, N/V, palpitations and dyspnea. Related Data Home Medications Medication Instructions Recorded Confirmed lansoprazole 15 mg capsule,delayed 15 mg PO BID 08/27/22 10/11/22 release Allergies Allergy/AdvReac Type Severity Reaction Status Date / Time Penicillins Allergy Unknown Verified 08/31/22 13:13 Sulfa (Sulfonamide Allergy Unknown Verified 08/31/22 13:13 Antibiotics) Review of Systems Review of Systems: All systems reviewed & are unremarkable except as noted in HPI and below PMFSH Past Medical History Medical History Hypertension Surgical History Surgical History History of tonsillectomy Family History Family History Father Diabetes mellitus Hypertension Restrictive airway disease Mother Alive and well Hypothyroid Grandparent Diabetes mellitus Hypertension Grandparent Colon cancer Grandparent Afib Hypertension Grandparent Prostate carcinoma Social History Social History Smoking status: Never smoker Tobacco type: cigarettes Second hand tobacco smoke exposure: No Alcohol intake: current Substance use: never Substance use type: does not use Lack of Transportation: No Lack of Food: Never True Current Housing: I Have Housing Concerned About Future Housing: No Difficulty Paying Gas/Electric Bills: No Difficulty Paying for Meds: No Currently Unemployed: No Education: Trade/Vocational Certificate Difficulty w/ Childcare or Family Care: No Living arrangements: with family Occupation/Education: occupation Gender identity (if verbalized by the patient): Female Sexual Orientation (if Verbalized by the Patient): Straight or Heterosexual Spiritual care concerns: No Exam Const: General: healthy appearing, no acute distress and alert Nutritional Appearance: well nourished Orientation/consciousness: patient oriented x3 HENMT: Head: normal to inspection Ears: external ears normal Face/Nose/Sinus: Normal external nose present Eyes: Conjunctivae: conjunctivae normal Pupils: Equal, round and reactive pupils present Neck: Neck: normal visual inspection Chest: Chest palpation & inspection: normal inspection of the chest Resp: Effort & Inspection: normal respiratory effort Auscultation: clear to auscultation bilaterally Cardio: Rate: regular rate Rhythm: regular rhythm GI: Inspection: non-distended Skin: General skin exam: normal color Neuro: General: patient oriented x3 and moves all extremities Extrem: General: normal to inspection Psych: Mental Status: mental status grossly normal Affect: Sad affect present and Anxious affect present Attitude: cooperative Course Course Emergency Course: After sitting in the ED for a short amount of time she felt better and we discussed the importance of meds and therapy Vital Signs Vital signs: Vital Signs Temperature 97.8 F 10/11/22 15:30 Pulse Rate 122 H 10/11/22 15:30 R
[2022-10-11] MEDS: busPIRone HCL 5 MG TABLET 10 MG PO (16:14)
[2022-10-11 16:31] VITALS: BP 151/97; PULSE 75; RESP 20; TEMP 36.5; O2SAT 97
--- NOTE | 2022-10-11 16:38 | PC.NURSE ---
discharge instructions to pt per dr dobson. pt voiced understanding
== END 2022-10-11 16:38 | disposition home or self-care (01) ==
PROVIDERS: Emergency Provider Family Medicine
DX: F41.9 Anxiety disorder, unspecified (principal); I10 Essential (primary) hypertension
CPT/HCPCS: 99283; A9270

== ENCOUNTER 2022-10-14 16:02 | Emergency (ER) | payer OTHER, SELFPAY ==
--- NOTE | 2022-10-14 16:00 | ECG_ITS ---
Measurements Intervals [place] Rate: 80 P: 78 OR: 143 QRS: 55 QRSD: 93 T: 46 QT: 350 QTc: 406 Interpretive Statements SINUS RHYTHM NORMAL ECG COMPARED TO ECG 10/14/2022 16:21:38 NO SIGNIFICANT CHANGES Electronically Signed On 10-15-2022 13:58:43 OIL[employer]ESSER by Jose Petit M.D.
[2022-10-14 16:04] VITALS: BP 147/94; PULSE 78; RESP 20; TEMP 36.5; O2SAT 97
[2022-10-14 16:05] VITALS: BP 152/94; PULSE 91; RESP 20; TEMP 36.5; O2SAT 97
[2022-10-14 16:16] VITALS: BP 147/94; PULSE 78; RESP 20; TEMP 36.5; O2SAT 97
--- NOTE | 2022-10-14 16:46 | ED.GENADULT ---
HPI - General Adult General Chief complaint: Back Pain/Injury Stated complaint: arm\hand numbness Time Seen by Provider: 10/14/22 16:46 Source: patient and family ( mother) Mode of arrival: ambulatory Limitations: no limitations History of Present Illness HPI narrative: patient is a 37-year-old white female by about 2 months with history of anxiety and depression recently started on Buspirone and sertraline for anxiety and depression complains of right hand feeling tingling and numb and having difficulty writing her name for about the last 3 days. Patient was seen in the emergency department here for panic attacks on October 06 and . She saw her nurse practitioner primary care provider Sergio nurse practitioner yesterday but did not mention these symptoms to her. Rather she just discussed her depression and starting on her antidepressants. Today she went to [facility] to sign up for sessions but had difficulty holding a pen and signing her name for the paperwork. So they sent her to the emergency department for evaluation. Patient has been under tremendous stress had been living with her baby's father the last 9 or 10 months. And evidently he is out of the picture at this time. She denies any other numbness or weakness. She has no symptoms above her right wrist she is walking talking see any hearing okay. Only complaint is a little bit of tenderness her midthoracic back for which she has not take anything for pain. Denies any difficulty breathing shortness of breath cough, problems eating drinking stooling or or voiding. Denies any bleeding or bruising rash or itching. She has just started her antidepressants 2 days ago. Denies any other complaints. She gets upset when she goes back to her original house. She is living with her mother right now who is helping her take care of her child. She is behind on a pain minute at her house and she feels like she can go to work tomorrow. She says she is depressed but is not suicidal or homicidal. Denies any other complaints. Related Data Home Medications Medication Instructions Recorded Confirmed nifedipine 30 mg tablet,extended 30 mg PO BID 10/14/22 10/14/22 release 24 hr Allergies Allergy/AdvReac Type Severity Reaction Status Date / Time Penicillins Allergy Unknown Verified 10/14/22 16:14 Sulfa (Sulfonamide Allergy Unknown Verified 10/14/22 16:14 Antibiotics) Review of Systems Constitutional: Constitutional: Reports as per HPI and Reports no additional constitutional complaints Eyes: Eyes: Reports as per HPI ENT: Reports system reviewed and no additional complaints, except as documented Cardiovascular: Cardiovascular: Reports as per HPI, Denies chest pain and Denies rapid heart rate Respiratory: Respiratory: Reports as per HPI, Reports no additional respiratory complaints, Denies chest congestion, Denies cough, Denies dyspnea and Denies wheezing Gastrointestinal: Gastrointestinal: Reports as per HPI, Reports no additional gastrointestinal complaints and Denies abdominal pain Genitourinary: Genitourinary: Reports no additional female genitourinary complaints Musculoskeletal: Musculoskeletal: Reports no additional musculoskeletal complaints and Reports as per HPI Integumentary/Breasts: Skin/Breast: Reports system reviewed and no additional complaints, except as docu Neurologic: Reports system reviewed and no additional complaints, except as documented Psychiatric: Psychiatric: Reports no additional psychiatric complaints, Reports as per HPI, Reports anxiety, Reports depression, Denies homicidal ideation and Denies suicidal ideation Endocrine: Endocrine: Reports no additional endocrine complaints Hematologic/Lymphatic: Hematologic/Lymphatic: Reports no additional hematologic/lymphatic complaints Allergic/Immunologic: Allergic/Immunologic: Reports no additional allergic/immunologic complaints PMFSH Past Medical History [facility]
== END 2022-10-14 17:05 | disposition home or self-care (01) ==
PROVIDERS: Emergency Provider Emergency Medicine
DX: O99.345 Other mental disorders complicating the puerperium (principal); F41.9 Anxiety disorder, unspecified; F53.0 Postpartum depression; R20.0 Anesthesia of skin; R20.2 Paresthesia of skin; I10 Essential (primary) hypertension; Z79.899 Other long term (current) drug therapy
CPT/HCPCS: 93005; 99283

== ENCOUNTER 2024-03-26 08:04 | Emergency (ER) | payer BC, MEDICAID, SELFPAY ==
--- NOTE | 2024-03-26 08:09 | ED.SKABFB ---
HPI - Skin/Abscess/Foreign Bdy General Chief complaint: Skin/Abscess/Foreign Body Stated complaint: RASH Time Seen by Provider: 03/26/24 08:22 Source: patient, RN notes reviewed and old records reviewed Mode of arrival: ambulatory Limitations: no limitations History of Present Illness HPI narrative: patient presents with complaints of rash to trunk, arms, legs. She reports rash has been present for approximately 1 week. She states that she has poison sumac in her yd, was pulling we had about 1 week ago. Rash. Shortly after that she reports that the rash has been spreading. She has been using calamine lotion with poor relief. She denies all other complaints at this time. Related Data Home Medications Medication Instructions Recorded Confirmed lansoprazole 15 mg delayed mg 03/26/24 03/26/24 release,disintegrating tablet Allergies Allergy/AdvReac Type Severity Reaction Status Date / Time Penicillins Allergy Unknown Verified 03/26/24 08:25 Sulfa (Sulfonamide Allergy Unknown Verified 10/14/22 16:14 Antibiotics) Review of Systems Review of Systems: All systems reviewed & are unremarkable except as noted in HPI and below Constitutional: Constitutional: Reports no additional constitutional complaints ENT: Reports system reviewed and no additional complaints, except as documented Cardiovascular: Cardiovascular: Reports no additional cardiovascular complaints Respiratory: Respiratory: Reports no additional respiratory complaints Gastrointestinal: Gastrointestinal: Reports no additional gastrointestinal complaints Integumentary/Breasts: Skin/Breast: Reports pruritus and Reports rash Psychiatric: Psychiatric: Reports anxiety [facility] Past Medical History Medical History Hypertension Surgical History Surgical History History of tonsillectomy Family History Family History Father Diabetes mellitus Hypertension Restrictive airway disease Mother Alive and well Hypothyroid Grandparent Diabetes mellitus Hypertension Grandparent Colon cancer Grandparent Afib Hypertension Grandparent Prostate carcinoma Father Family history of obesity Hypertension Family history of diabetes mellitus in first degree relative Mother Family history of obesity Family history of hypothyroidism Social History Social History Smoking status: Never smoker Tobacco type: cigarettes Second hand tobacco smoke exposure: No Alcohol intake: current Substance use: never Substance use type: does not use Lack of Transportation: No Lack of Food: Never True Current Housing: I Have Housing Concerned About Future Housing: No Difficulty Paying Gas/Electric Bills: No Difficulty Paying for Meds: No Currently Unemployed: No Education: Trade/Vocational Certificate Difficulty w/ Childcare or Family Care: No Living arrangements: with family Occupation/Education: occupation Gender identity (if verbalized by the patient): Female Sexual Orientation (if Verbalized by the Patient): Straight or Heterosexual Spiritual care concerns: No Comments At the time of my signature, I reviewed and agree with the nursing past medical, surgical, social, and family history. There is no relevant family history pertinent to the patient complaint. Exam Const: General: cooperative, no acute distress, alert and awake Orientation/consciousness: oriented to person, oriented to place and oriented to time HENMT: Head: normal to inspection Resp: Effort & Inspection: normal respiratory effort and able to speak in complete sentences Auscultation: clear to auscultation bilaterally, no crackles, no rales, no rhonchi and no wheezes Cardio: Palpation: normal PMI Rate: regular rate Rhyth
[2024-03-26 08:16] VITALS: BP 157/94; PULSE 83; RESP 16; TEMP 36.7; O2SAT 100
== END 2024-03-26 08:45 | disposition home or self-care (01) ==
PROVIDERS: Emergency Provider Nurse Practitioner Family
DX: L25.5 Unspecified contact dermatitis due to plants, except food (principal); I10 Essential (primary) hypertension
CPT/HCPCS: 99213; G0463